=== PATIENT | female | born 1990 | race Hispanic/Latino ===

== ENCOUNTER 2017-07-30 13:53 | Emergency (ER) | payer MEDICAID, OTHER ==
[2017-07-30 13:59] VITALS: TEMP 98.2; O2SAT 100
[2017-07-30 14:52] LABS: RBC URINE 4 /hpf (0-3); URINE BILIRUBIN NEGATIVE (NEGATIVE); URINE COLOR Yellow (YELLOW); URINE GLUCOSE (UA) NORMAL (Normal); URINE KETONE NEGATIVE (NEGATIVE); URINE LEUKOCYTE ESTERASE NEG Leu/uL (Negative); URINE PROTEIN NEGATIVE (NEGATIVE); URINE UROBILINOGEN NORMAL mg/dL (0.2-1.0); WBC URINE < 1 /hpf (0-5)
[2017-07-30 14:53] LABS: URINE BLOOD 1+ (NEGATIVE)
--- NOTE | 2017-07-30 16:08 | RAD ---
PROCEDURE: Radiographs of the Lumbar Spine. HISTORY: pain COMPARISON: No prior. FINDINGS: BONES: Patient may be splinting away from the left as the thoracic spine and upper lumbar segment appear diverted toward the left somewhat. A intrinsic levoscoliotis is not favored however clinical correlation is advised. No suspicious lytic or blastic change is evident. The pedicles appear unremarkable are normally distributed. To body heights are normal. DISC SPACES: Loss disc height at L5-S1 indicates degenerative disease with remaining intervertebral discs scotty for mild height loss at L4-5. OTHER FINDINGS: None. IMPRESSION: Limited degenerative disease identified at L4-5 which is moderate to severe at L5-S1. Splinting is favored over levoscoliotic lumbar spinal deformity. Clinically correlate further. MRI is available for follow-up if clinically warranted.
--- NOTE | 2017-07-30 17:00 | CT ---
PROCEDURE: CT Abdomen and Pelvis without intravenous contrast HISTORY: pain COMPARISON: None. TECHNIQUE: Helical CT of the abdomen and pelvis was performed without oral or intravenous contrast as per referring physician request. Contrast Dose: None Radiation dose: Total exam DLP = 401.53 mGy-cm. This CT exam was performed using one or more of the following dose reduction techniques: Automated exposure control, adjustment of the mA and/or kV according to patient size, and/or use of iterative reconstruction technique. FINDINGS: LOWER THORAX: Unremarkable. LIVER: Unremarkable. No gross lesion or ductal dilatation. GALLBLADDER AND BILE DUCTS: Unremarkable. PANCREAS: Pancreas is limited evaluation due to a silhouetting by a local small-bowel loops. No gross lesion is appreciable however this the appearances suboptimal. SPLEEN: Unremarkable. ADRENALS: Unremarkable. No mass. KIDNEYS AND URETERS: No hydronephrosis appreciated or perinephric reaction. A punctate intrarenal calculus identified in the upper pole left kidney which is nonobstructive and none are seen at the right kidney. VASCULATURE: Unremarkable. No aortic aneurysm. BOWEL: Mildly prominent retained fecal material is seen throughout the large bowel sparing the distal rectosigmoid. No obstruction. No gross mural thickening. APPENDIX: The proximal to mid appendix appears normal with the distal portions silhouetted by what appears to be terminal ileum or a separate small-bowel loop. This limits its evaluation as well as the lack of intraperitoneal fat and contrast agents. PERITONEUM: There is a marked lack of intraperitoneal fat and the perineum is limited evaluation. Trace fluid is seen at the inferior pelvis bilaterally appear LYMPH NODES: Unremarkable. No enlarged lymph nodes. BLADDER: Unremarkable. REPRODUCTIVE: A 3.9 x 3.2 cm right adnexal cyst is appreciated which follow-up pelvic ultrasonography can be performed for greater detail. BONES: No acute fracture. OTHER FINDINGS: None. IMPRESSION: 1. Limited fluid is seen in the inferior pelvis with a 3.9 x 3.2 cm right adnexal cyst. Follow-up pelvic ultrasound is advised for greater characterization. 2. No bowel obstruction or free intrarenal gas identified. There is also no obstructive uropathy although punctate intrarenal calculus seen at the upper pole left kidney. The study is compromised by lack of oral and intravenous contrast administration as well as a lack of intraperitoneal fat as well. The study is of limited diagnostic yield. Follow-up intravenous and oral contrast abdomen and pelvis CT can be performed if clinically warranted. 3. Partial imaging of the appendix with visualized segment appear unremarkable. Distal portion is obscured by a local small-bowel loop.
--- NOTE | 2017-07-30 17:03 | C.PDOC ---
History Of Present Illness 27 y/o female presents to ED with complaints of back pain for 3 days worse with movement. Patient states she took Aleve with no relief and denies change in sensation, urinary/bowel incontinence, weakness, trauma or any other complaints at this time. Time Seen by Provider: 07/30/17 14:45 Chief Complaint (Nursing): Back Pain History Per: Patient History/Exam Limitations: no limitations Onset/Duration Of Symptoms: Days Current Symptoms Are (Timing): Still Present Quality Of Discomfort: "Pain" Past Medical History Reviewed: Historical Data, Nursing Documentation, Vital Signs Vital Signs: Last Vital Signs Temp 98.2 F 07/30/17 13:56 Pulse 70 07/30/17 17:10 Resp 16 07/30/17 17:10 BP 121/74 07/30/17 17:10 Pulse Ox 100 07/30/17 20:25 - Medical History PMH: Back Problems Surgical History: No Surg Hx - [facility] Procedures INJECT/INFUSE NEC (07/23/13) OTHER SKIN & SUBQ I D (01/19/15) Family History: States: No Known Family Hx - Social History Hx Tobacco Use: No Hx Alcohol Use: Yes Hx Substance Use: No - Immunization History Hx Tetanus Toxoid Vaccination: No Hx Influenza Vaccination: No Hx Pneumococcal Vaccination: No Review Of Systems Except As Marked, All Systems Reviewed And Found Negative. Constitutional: Negative for: Fever, Chills Gastrointestinal: Negative for: Nausea, Vomiting, Abdominal Pain, Diarrhea Genitourinary: Negative for: Dysuria, Frequency, Hematuria Musculoskeletal: Positive for: Back Pain Skin: Negative for: Rash Neurological: Negative for: Weakness, Numbness Physical Exam - Physical Exam Appears: Non-toxic, Other (pt appears uncomfortable, sitting up straight) Skin: Normal Color, Warm, Dry, No Rash Head: Atraumatic, Normacephalic Eye(s): bilateral: Normal Inspection, EOMI Nose: Normal Oral Mucosa: Moist Neck: Normal ROM, Supple Chest: Symmetrical Cardiovascular: Rhythm Regular Respiratory: Normal Breath Sounds, No Accessory Muscle Use Gastrointestinal/Abdominal: Soft, No Tenderness, No Guarding, No Rebound Back: No CVA Tenderness, Muscle Spasm, Other (lower Paralumbar/parasacral Tenderness) Extremity: Normal ROM Extremity: Bilateral: Atraumatic Neurological/Psych: Oriented x3, Normal Motor, Normal Sensation ED Course And Treatment O2 Sat by Pulse Oximetry: 100 (RA) Pulse Ox Interpretation: Normal Progress Note: On re-evaluation, pt notes pain persists. REfuses additional medication. Pt was given results of XR and CT and instructed to follow up with PMD in 1-2 days. Instructed to return to ER if symptoms persist or worsen. Disposition - Disposition Referrals: [facility] [Outside] Disposition: HOME/ ROUTINE Disposition Time: 17:01 Condition: STABLE Additional Instructions: Today you were treated with Toradol (a pain medication) and Flexeril ( a muscle relaxer). Follow up with your primary medical doctor or clinic in 2-5 days for further evaluation. Take medications as prescribed. Return to the emergency department at any time if symptoms persist or worsen. Prescriptions: Cyclobenzaprine [Cyclobenzaprine HCl] 10 mg PO TID #20 tab Naproxen [Naprosyn] 1 tab PO BID PRN #20 tab PRN Reason: Pain Instructions: Acute Low Back Pain (ED) Forms: [employer] (Taiwanese) - Clinical Impression Clinical Impression: Low back strain - PA / LAWN TECHNICIAN / Resident Statement MD/DO has reviewed & agrees with the documentation as recorded. - Scribe Statement The provider has reviewed the documentation as recorded by the Cortesibe Sarthak Peterson All medical record entries made by the Juan Pablo were at my direction and personally dictated by me. I have reviewed the chart and agree that the record accurately reflects my personal performance of the history, physical exam, medical decision making, and the department course for this patient. I have also personally directed, reviewed, and agree with the discharge instructions and disposition.
[2017-07-30 17:10] VITALS: BP 121/74; PULSE 70; RESP 16
== END 2017-07-30 17:10 | disposition home or self-care (01) ==
LOC: C.ER 13:53
DX: S39.012A Strain of muscle, fascia and tendon of lower back, initial encounter (principal); X58.XXXA Exposure to other specified factors, initial encounter; Y93.9 Activity, unspecified; Y92.9 Unspecified place or not applicable
CPT/HCPCS: 72100; 74176; 81001; 84703; 96372; 99283; J1885

== ENCOUNTER 2018-06-13 10:16 | Emergency (ER) | payer MEDICAID, OTHER ==
[2018-06-13 10:17] VITALS: BMI 22.1
[2018-06-13 10:24] VITALS: BP 121/86; PULSE 90; RESP 16; TEMP 98.1; O2SAT 99
--- NOTE | 2018-06-13 11:03 | C.PDOC ---
History Of Present Illness 28 year old female presents to the emergency department with complaints of right ear pain for the last two to three days. She denies decreased hearing, fever, runny nose, sore throat, cough. She does reports a mild headache. Time Seen by Provider: 06/13/18 10:23 Chief Complaint (Nursing): ENT Problem History Per: Patient History/Exam Limitations: None Onset/Duration Of Symptoms: Days (2-3) Current Symptoms Are (Timing): Still Present Quality (Ear): Pain W/Touch Symptoms Have Been: Continuous Severity: Mild Past Medical History Reviewed: Historical Data, Nursing Documentation, Vital Signs Vital Signs: Last Vital Signs Temp 98.1 F 06/13/18 10:22 Pulse 90 06/13/18 10:22 Resp 16 06/13/18 10:22 BP 121/86 06/13/18 10:22 Pulse Ox 99 06/13/18 12:42 - Medical History PMH: Back Problems Surgical History: No Surg Hx - [facility] Procedures INJECT/INFUSE NEC (07/23/13) OTHER SKIN & SUBQ I D (01/19/15) Family History: States: No Known Family Hx - Social History Hx Tobacco Use: No Hx Alcohol Use: Yes Hx Substance Use: No - Immunization History Hx Tetanus Toxoid Vaccination: No Hx Influenza Vaccination: No Hx Pneumococcal Vaccination: No Review Of Systems Constitutional: Negative for: Fever ENT: Positive for: Ear Pain (right). Negative for: Nose Discharge, Nose Congestion, Throat Pain, Other (decreased hearing) Respiratory: Negative for: Cough, Shortness of Breath Skin: Negative for: Rash Neurological: Positive for: Headache Physical Exam - Physical Exam Appears: Well, Non-toxic, No Acute Distress Skin: Normal Color, Warm, Dry, No Rash Head: Normacephalic Eye(s): bilateral: Normal Inspection Ear(s): Left: Normal, Right: Other (mild swelling of the ear canal with mild white discharge, normal TM, no mastoid TTP) Nose: Normal Oral Mucosa: Moist Throat: Normal, No Erythema, No Exudate Neck: Normal, Supple Lymphatic: No Adenopathy Cardiovascular: Rhythm Regular Respiratory: Normal Breath Sounds, No Rales, No Rhonchi, No Wheezing Neurological/Psych: Oriented x3 ED Course And Treatment O2 Sat by Pulse Oximetry: 99 (RA) Pulse Ox Interpretation: Normal Progress Note: Patient given PO Motrin in ED. Rx for Ciprodex given, and patient instructed to follow up with ENT within 1 week if symptoms persist. She understands she should return to ED if symptoms worsen. Reevaluation Time: 11:20 Reassessment Condition: Improved Disposition Counseled Patient/Family Regarding: Diagnosis, Need For Followup, Rx Given - Disposition Referrals: Zelalem Tian MD [Staff Provider] - Disposition: HOME/ ROUTINE Disposition Time: 11:20 Condition: STABLE Additional Instructions: FOLLOW UP WITH ENT WITHIN 1 WEEK IF SYMPTOMS PERSIST USE MEDICATIONS DIRECTED RETURN TO ER IF SYMPTOMS WORSEN Prescriptions: Ciprofloxacin/Dexamethasone [Ciprodex Otic] 3 drop OT BID #1 bottle Ibuprofen [Motrin Tab] 600 mg PO Q6 PRN #30 tab PRN Reason: fever/pain Instructions: Outer Ear Infection (DC) Forms: [employer] (Kazakh) Print Language: GREEK - POA Present On Arrival: None - Clinical Impression Clinical Impression: Otitis externa of right ear - Scribe Statement The provider has reviewed the documentation as recorded by the Scribe (Eliecer Haile) Provider Attestation: All medical record entries made by the Scribe were at my direction and personally dictated by me. I have reviewed the chart and agree that the record accurately reflects my personal performance of the history, physical exam, medical decision making, and the department course for this patient. I have also personally directed, reviewed, and agree with the discharge instructions and disposition.
== END 2018-06-13 11:35 | disposition home or self-care (01) ==
LOC: C.ER 10:16
DX: H60.91 Unspecified otitis externa, right ear (principal)

== ENCOUNTER 2019-03-18 20:17 | Emergency (ER) | payer OTHER | END 2019-03-19 01:15 | disposition home or self-care (01) | LOC: C.ER 03-19 01:15 ==